=== PATIENT | male | born 1985 | race Caucasian/White ===

== ENCOUNTER 2025-05-13 23:18 | Emergency (ER) | payer SELFPAY ==
[2025-05-13 23:20] VITALS: BP 135/95
--- NOTE | 2025-05-14 00:11 | ED.GENMED ---
History of Present Illness
General
Chief Complaint: Headache
Time Seen by Provider: 05/14/25 00:03
History of Present Illness
History of Present Illness:
Patient is a 32-year-old man presenting to the emergency department with URI symptoms as well as a headache. Patient states for the past few days he has had cough congestion runny nose. with similar symptoms. Today developed a mild headache
that he describes as a throbbing sensation. It is similar to the headaches that he gets when he is sick. No numbness tingling. No weakness. No fevers or chills. He does state that he smoked marijuana and then symptoms worsen. He is concerned
that the marijuana could be laced with something. No chest pain. No difficulty breathing. No nausea or vomiting. No diarrhea.
Phy Exam
Physical Exam
Physical Exam:
GENERAL: in no acute distress
HEENT: normocephalic, extraocular movements intact, moist oral mucosa
NECK: normal inspection
RESPIRATORY: no respiratory distress, clear to auscultation bilaterally
CARDIOVASCULAR: regular rate and rhythm
ABDOMEN/: soft, non-distended, non-tender to palpation, no rebound or guarding
EXTREMITIES: non-tender, no edema/swelling
NEUROLOGIC: awake and alert, moves all extremities
SKIN: warm
Course
Orders/Labs/Results
Orders:
Orders
05/14/25 00:10
Diphenhydramine [Benadryl] 25 mg IV NOW STA
Ketorolac [Toradol] 15 mg IV NOW STA
Metoclopramide [Reglan] 10 mg IV NOW STA
05/14/25 00:36
COVID-19 Antigen Urgent
Source: Nasal Swab
Influenza A+B Rapid Molecular Urgent
HERMES Source: Nasal Swab
Specimen Description:
Vital Signs
Initial and Last Documented VS:
Initial Vital Signs
Temp Pulse Resp BP Pulse Ox
97.8 F 70 18 135/95 94
05/13/25 23:20 05/13/25 23:20 05/13/25 23:20 05/13/25 23:20 05/13/25 23:20
Last Documented Vital Signs
Temp Pulse Resp BP Pulse Ox
97.8 F 98 20 108/69 98
05/13/25 23:20 05/14/25 00:44 05/14/25 00:44 05/14/25 01:00 05/14/25 01:01
MDM/Problems Addressed
Differential Diagnosis Includes:
Patient is a 40-year-old man presenting to the emergency department with a few days of cough congestion runny nose headache with symptoms worsening today after smoking marijuana. On arrival vitals unremarkable. Exam is reassuring. Differential
consists of URI, tension headache, substance use. History and exam not consistent with pneumonia or meningitis or intracranial hemorrhage. Will proceed with migraine cocktail, respiratory swabs. At patient's request we will obtain UDS as well.
*Pulse Oximetry
SaO2: 94
Oxygen Mode of Delivery: Room air
Patient hypoxic: no
*Critical Care Note
Total Time (30-74mins, 75-104mins- exclusive of procedures): Not Applicable
Update Note
Update Note:
On reevaluation headache has improved. Patient is requesting discharge at this time pending respiratory swab reports. It does not change management lead so will discharge. Patient was unable to urinate. Will discontinue urine drug screen as it does
not change management lead.
ED Attending Note
-
Portions of this chart may have been created with voice recognition software.� Occasional wrong word or��sound alike� substitutions may have occurred due to the inherent limitations of voice recognition software.
Discharge Plan
Interventions
Interventions:
*Risk Screen - Suicide Last Done: 05/13/25 23:20
*General Assessment Last Done: 05/14/25 00:25
*Neglect/Abuse Screening Last Done: 05/13/25 23:20
*ED- Fall Risk Assessment Last Done: 05/14/25 00:25
*ED COVID-19 Vaccine History Last Done: 05/14/25 00:25
*ED Influenza Vaccine History Last Done: 05/14/25 00:25
ED-EENT Assessment Last Done: 05/14/25 00:49
ED- Neurological Assessment Last Done: 05/14/25 00:49
ED- Pulmonary Assessment Last Done: 05/14/25 00:49
ED-Skin Assessment Last Done: 05/14/25 00:49
Discharge Date and Time
Print Language: [id number]
[2025-05-14 00:25] VITALS: BMI 22.9
[2025-05-14] MEDS: BENADRYL 25 MG IV (00:34)
[2025-05-14] MEDS: TORADOL 15 MG IV (00:35)
[2025-05-14] MEDS: REGLAN 10 MG IV (00:36)
[2025-05-14 00:41] VITALS: BP 139/85
[2025-05-14 01:00] VITALS: BP 108/69
[2025-05-14 01:15] LABS: COVID-19 Antigen Negative (Negative)
== END 2025-05-14 02:51 | disposition home or self-care (01) ==
LOC: EMR 23:18
PROVIDERS: EMERGENCY PHYSICIAN Student in an Organized Health Care Education/Training Program
DX: J06.9 Acute upper respiratory infection, unspecified (principal); F12.90 Cannabis use, unspecified, uncomplicated
CPT/HCPCS: 99284; 96374; 96375 ×2; 87502; 87811